=== PATIENT | female | born 2000 | race American Indian/Alaskan Native ===

== ENCOUNTER 2020-07-20 15:24 | Emergency (ER) | payer SELFPAY ==
[2020-07-20] MEDS ORDERED: ZIPRASIDONE MESYLATE 20 MG VIAL IM ONE (16:28)
[2020-07-20] MEDS ORDERED: ALUM-MAG HYDROXIDE-SIMETHICONE 200-200-20MG/5ML ORAL LIQD 30 ML PO PRN (16:28)
[2020-07-20] MEDS ORDERED: ACETAMINOPHEN 325 MG TAB PO PRN (16:28)
[2020-07-20] MEDS ORDERED: MAGNESIUM HYDROXIDE (MOM) ORAL LIQD UDC PO PRN (16:28)
[2020-07-20] MEDS ORDERED: ZIPRASIDONE MESYLATE 20 MG VIAL IM PRN (16:30)
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
[2020-07-20 17:13] LABS: Basophils % (Auto) 0.6 % (0.0-1.8); Eosinophils # (Auto) 0.1 K/mm3 (0.0-0.4); Hematocrit 35.5 % (30.3-42.9); Hemoglobin 11.7 gm/dl (10.1-14.3); Lymphocytes # (Auto) 2.9 K/mm3 (1.2-5.4); Lymphocytes % (Auto) 51.4 % (13.4-35.0); Mean Corpuscular HGB Conc 33 % (30-34); Mean Corpuscular Volume 85 fl (79-97); Monocytes # (Auto) 0.4 K/mm3 (0.0-0.8); Monocytes % (Auto) 6.6 % (0.0-7.3); Platelet Count 243 K/mm3 (140-440); Red Blood Count 4.17 M/mm3 (3.65-5.03); Red Cell Distribution Width 15.3 % (13.2-15.2)
[2020-07-20 17:26] LABS: Alanine Aminotransferase 14 units/L (7-56); Blood Urea Nitrogen 16 mg/dL (7-17); Calcium 8.9 mg/dL (8.4-10.2); Hemolysis Index 1
[2020-07-20 17:27] LABS: BUN/Creatinine Ratio 32
[2020-07-20 18:54] LABS: Bilirubin,Urine NEG (Negative); Blood,Urine NEG (Negative); Color,Urine Yellow (Yellow); Mucus,Urine FEW /HPF; Protein,Urine <15 mg/dL mg/dL (Negative); Urobilinogen,Urine < 2.0 mg/dL (<2.0); WBC,Urine < 1.0 /HPF (0.0-6.0)
[2020-07-20 19:02] LABS: Amphetamine Screen,Urine Negative; Benzodiazepines Screen,Urine Negative; Cannabinoid Screen,Urine Negative; Cocaine Screen,Urine Negative; Methadone Screen,Urine Negative; Opiate Screen,Urine Negative
[2020-07-20 19:03] LABS: RBC,Urine < 1.0 /HPF (0.0-6.0)
[2020-07-20] MEDS ORDERED: WATER FOR INJ Sterile (PF) 10 ML ONE (23:26)
[2020-07-21] MEDS ORDERED: ZIPRASIDONE MESYLATE 20 MG VIAL IM ONE (00:47)
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
[2020-07-21] MEDS: ZIPRASIDONE 20 MG CAP PO SCH ×2 (16:00→23:10)
[2020-07-22 08:19] VITALS: BP 109/72
[2020-07-22] MEDS ORDERED: WATER FOR INJ Sterile (PF) 10 ML ONE (08:46)
== END 2020-07-22 09:07 | disposition other institution (70) ==
LOC: ED 15:24
DX: F23 Brief psychotic disorder (principal); F12.10 Cannabis abuse, uncomplicated; Z79.899 Other long term (current) drug therapy; Z20.822 Contact with and (suspected) exposure to COVID-19
CPT/HCPCS: 36415; 80053; 80307; 81001; 84703; 85025; 96372; 99285; J3486; 80320; G0480

== ENCOUNTER 2020-07-30 14:12 | Emergency (ER) | payer SELFPAY ==
[2020-07-30] MEDS ORDERED: ZIPRASIDONE MESYLATE 20 MG VIAL IM ONE (14:30)
[2020-07-30] MEDS ORDERED: ALUM-MAG HYDROXIDE-SIMETHICONE 200-200-20MG/5ML ORAL LIQD 30 ML PO PRN (14:30)
[2020-07-30] MEDS ORDERED: MAGNESIUM HYDROXIDE (MOM) ORAL LIQD UDC PO PRN (14:30)
[2020-07-30] MEDS ORDERED: ACETAMINOPHEN 325 MG TAB PO PRN (14:30)
--- NOTE | 2020-07-30 15:00 | Emergency Department Report ---
ED Psych HPI - General Chief Complaint: Psych Stated Complaint: MENTAL HEALTH Time Seen by Provider: 07/30/20 14:29 Source: family Mode of arrival: Ambulatory - History of Present Illness Initial Comments: Chief complaint: "She is having a breakdown." HPI: This is a 20-year-old female who was recently diagnosed with bipolar disorder during recent ED encounter who presents with abnormal behavior and delusional thought pattern. She has not been taking her medication. Brother at the bedside provided history. She lives with mother and several siblings. Brother attempts to give her medications. She only takes the medications sporadically. Patient was evaluated here for similar symptoms on July 20. I was the initial provider at that time. Patient was transferred to [facility] for medical stabilization. Brother stated that today family called 911. Patient locked herself in the bathroom. She just watched the water continue to run from a faucet. She told h er family members that someone is "out to kill me" Patient would not cooperate with history taking. She mumbles "I am fine. I am okay." Complaint: altered mental status -: Gradual, days(s) (Several days since discharge from [facility]) Associated Psychiatric Symptoms: depression, delusions History of same: Yes Quality: constant Improves With: none Worsens With: none Context: not taking psychiatric Associated Symptoms: denies other symptoms, headache - Related Data Home Medications Medication Instructions Recorded Confirmed Last Taken Venlafaxine HCl [Effexor Xr] 75 mg PO DAILY 07/20/20 07/20/20 Unknown Allergies Allergy/AdvReac Type Severity Reaction Status Date / Time No Known Allergies Allergy Verified 07/30/20 14:33 ED Review of Systems ROS: Stated complaint: MENTAL HEALTH Other details as noted in HPI Comment: All other systems reviewed and negative Constitutional: denies: fever, malaise Respiratory: denies: cough, shortness of breath Gastrointestinal: denies: abdominal pain, nausea, vomiting Psychiatric: depression, auditory hallucinations, other (Delusional thought) ED Past Medical Hx - Past Medical History Previous Medical History?: Yes Hx Psychiatric Treatment: Yes (Bipolar disorder diagnosed July 2020) - Surgical History Past Surgical History?: Yes Additional Surgical History: Adenoids removed during childhood - Social History Smoking Status: Never Smoker - Medications Home Medications: Home Medications Medication Instructions Recorded Confirmed Last Taken Type Venlafaxine HCl [Effexor Xr] 75 mg PO DAILY 07/20/20 07/20/20 Unknown History ED Physical Exam - General Limitations: No Limitations General appearance: alert, in no apparent distress, other (Patient requires constant redirection in order to follow commands, poor eye contact) - Head Head exam: Present: atraumatic, normocephalic - Eye Eye exam: Present: normal appearance - ENT ENT exam: Present: mucous membranes moist - Neck Neck exam: Present: normal inspection, full ROM - Respiratory Respiratory exam: Present: normal lung sounds bilaterally. Absent: respiratory distress, wheezes, rales, rhonchi - Cardiovascular Cardiovascular Exam: Present: regular rate, normal rhythm, normal heart sounds. Absent: systolic murmur, diastolic murmur, rubs, gallop - GI/Abdominal GI/Abdominal exam: Present: soft, normal bowel sounds. Absent: distended, tenderness, guarding, rebound - Extremities Exam Extremities exam: Present: normal inspection - Neurological Exam Neurological exam: Present: alert, oriented X3 - Psychiatric Psychiatric exam: Present: depressed, flat affect, other (Poor eye contact, poor insight, responding to internal stimuli) - Skin Skin exam: Present: warm, dry, intact, normal color. Absent: rash ED Course Vital Signs 07/30/20 14:57 Temperature 98.2 F Pulse Rate 110 H Respiratory 20 Rate Blood Pressure 143/97 [Right] O2 Sat by Pulse 98 Oximetry - Reevaluation(s) Reevaluation #1: 07/30/20 17:48 I walk with patient and brother from hallway to treatment room. With two nurses, physical security engineer, brother at the bedside, I took history. Reevaluation #2: 07/30/20 17:49 I reassess patient. Patient standing staring at the wall. 07/30/20 17:50 ED Medical Decision Making - Lab Data Result diagrams: 07/30/20 14:45 07/30/20 14:45 - Medical Decision Making Acute psychosis: Patient has delusional thought pattern, paranoia, poor insight, she is currently responding to internal stimuli. She requires constant redirection. She is a high risk for self-harm. ED hold order in place. 1013 form completed. Patient is medically clear for psychiatric care. CBC chemistry serum toxicology screen all within normal limits. Serum test negative. Anticipating transfer to [facility]. Patient received chemical restraint. She required seclusion and locked room. Critical Care Time: Yes Critical care time in (mins) excluding proc time.: 40 Critical care attestation.: If time is entered above; I have spent that time in minutes in the direct care of this critically ill patient, excluding procedure time. 40 minutes of critical care time excluding procedures were used in the care of the patient. I came immediately to the bedside upon patient's arrival. I obtained history from brother at the bedside, I discussed treatment plan with the nursing team members. I reviewed electronic record. I was concerned for escalation behavior. Patient patient attempted to elope during recent ED encounter. Patient required multiple interventions and reassessments. ED Disposition Clinical Impression: Acute psychosis, Bipolar disorder Disposition: DC/TX-65 PSY HOSP/PSY UNIT Is pt being admited?: No Does the pt Need Aspirin: No Condition: Fair
[2020-07-30 15:55] LABS: Basophils % (Auto) 0.3 % (0.0-1.8); Eosinophils # (Auto) 0.1 K/mm3 (0.0-0.4); Eosinophils % (Auto) 0.7 % (0.0-4.3); Hematocrit 34.8 % (30.3-42.9); Hemoglobin 11.5 gm/dl (10.1-14.3); Lymphocytes # (Auto) 1.6 K/mm3 (1.2-5.4); Lymphocytes % (Auto) 21.2 % (13.4-35.0); Mean Corpuscular HGB Conc 33 % (30-34); Mean Corpuscular Volume 85 fl (79-97); Monocytes # (Auto) 0.7 K/mm3 (0.0-0.8); Monocytes % (Auto) 8.9 % (0.0-7.3); Platelet Count 247 K/mm3 (140-440); Red Blood Count 4.08 M/mm3 (3.65-5.03); Red Cell Distribution Width 15.1 % (13.2-15.2)
[2020-07-30 15:57] LABS: Blood Urea Nitrogen 8 mg/dL (7-17); Hemolysis Index 29
[2020-07-30 16:25] LABS: BUN/Creatinine Ratio 11
[2020-07-31] MEDS ORDERED: ZIPRASIDONE MESYLATE 20 MG VIAL IM ONE (07:09)
--- NOTE | 2020-07-31 10:39 | Emergency Department Report ---
Blank Doc - Documentation Documentation: No new events No new complaints Awaiting placement
--- NOTE | 2020-07-31 11:33 | Consultation ---
History of Present Illness - Reason for Consult Consult date: 07/31/20 Reason for consult: agitation - History of Present Psychiatric Illness Per Nurse Note: HPI: This is a 20-year-old female who was recently diagnosed with bipolar disorder during recent ED encounter who presents with abnormal behavior and delusional thought pattern. She has not been taking her medication. Brother at the bedside provided history. She lives with mother and several siblings. Brother attempts to give her medications. She only takes the medications sporadically. Patient was evaluated here for similar symptoms on July 20. I was the initial provider at that time. Patient was transferred to [facility] for medical stabilization. Brother stated that today family called 911. Patient locked herself in the bathroom. She just watched the water continue to run from a faucet. She told her family members that someone is "out to kill me" I attempted to assess this patient today. She is difficulty to arouse. The nurse says the patient was given geodon because she could not get her to keep her clothes on. The patient did arouse. She raised up and stared and me and went back out. PAST PSYCHIATRIC HISTORY: Unable to obtain PAST MEDICAL HISTORY: None reported Family Psychiatric History: None reported or documented SOCIAL HISTORY Unable to obtain REVIEW OF SYSTEMS Unable to obtain MENTAL STATUS EXAMINATION Unable to assess Assessment and Plan (1) Bipolar Disorder Current Visit: Yes Status: Acute Treatment Plan 1013 Restart home meds Sitter: defer to primary Medical: per primary Disposition: Recommend acute psychiatric inpatient treatment Will follow. Thank you for this consult. Case staffed with Dr. Gordon. Medications and Allergies Allergies Allergy/AdvReac Type Severity Reaction Status Date / Time No Known Allergies Allergy Verified 07/30/20 14:33 Home Medications Medication Instructions Recorded Confirmed Last Taken Type Venlafaxine HCl [Effexor Xr] 75 mg PO DAILY 07/20/20 07/30/20 1 Day Ago History ~07/29/20 Paliperidone [Invega] 6 mg PO QHS 07/30/20 07/30/20 1 Day Ago History ~07/29/20 traZODone [Desyrel] 50 mg PO QHS 07/30/20 07/30/20 1 Day Ago History ~07/29/20 Active Meds: Active Medications Acetaminophen (Acetaminophen 325 Mg Tab) 650 mg PO Q4HR PRN PRN Reason: Pain MILD(1-3)/Fever >100.5/HAMMOND Al Hydrox/Mg Hydrox/Simethicone (Alum-Mag Hydroxide-Simethicone [id number]/5ml Oral Liqd 30 Ml) 30 ml PO Q4HR PRN PRN Reason: Indigestion Magnesium Hydroxide (Magnesium Hydroxide (Mom) Oral Liqd Udc) 30 ml PO Q12HR PRN PRN Reason: Constipation Mental Status Exam - Vital signs Last Vital Signs Temp 97.8 F 07/31/20 08:15 Pulse 84 07/31/20 08:15 Resp 18 07/31/20 08:15 BP 130/94 07/31/20 08:15 Pulse Ox 100 07/31/20 08:15 Results Result Diagrams: 07/30/20 14:45 07/30/20 14:45 Abnormal lab results 07/30/20 07/30/20 07/30/20 Range/Units 14:45 14:45 14:45 Tucker % (Auto) 8.9 H (0.0-7.3) % Sodium 133 L (137-145) mmol/L Glucose 111 H (65-100) mg/dL Salicylates < 0.3 L (2.8-20.0) mg/dL Acetaminophen (10.0-30.0) ug/mL 07/30/20 Range/Units 14:45 Tucker % (Auto) (0.0-7.3) % Sodium (137-145) mmol/L Glucose (65-100) mg/dL Salicylates (2.8-20.0) mg/dL Acetaminophen 5.0 L (10.0-30.0) ug/mL All other labs normal.
[2020-07-31] MEDS ORDERED: PALIPERIDONE 6 MG PO SCH (22:00)
[2020-07-31] MEDS: traZODone 50 MG TAB PO SCH (23:16)
[2020-07-31] MEDS: PALIPERIDONE ER 3 MG TAB PO SCH (23:17)
--- NOTE | 2020-08-01 10:31 | Progress Note ---
Subjective - Reason for Consult Consult date: 08/01/20 Reason for consult: psychosis - Chief Complaint Chief complaint: Per Nursing staff: The patient has been taking her clothes off and won't keep them on. Also says the patient is aggressive, and will fight. The patient was seen today. She is standing at the door looking out of the window. She is naked and just staring at me. I did not open the door, because the sitter states if she comes out she will fight. MENTAL STATUS EXAMINATION Unable to assess Assessment and Plan (1) Bipolar Disorder Current Visit: Yes Status: Acute Treatment Plan 1013 Start Geodon 20mg IM q6h prn agitatione Sitter: defer to primary Medical: per primary Disposition: Recommend acute psychiatric inpatient treatment Will follow. Thank you for this consult. Case staffed with Dr. Gordon. Mental Status Exam - Vital signs Last Vital Signs Temp 98.3 F 07/31/20 20:30 Pulse 114 H 07/31/20 20:30 Resp 22 07/31/20 21:28 BP 162/92 07/31/20 20:30 Pulse Ox 97 07/31/20 21:28
--- NOTE | 2020-08-01 11:27 | Event Note ---
Date: 08/01/20 S- "I'm ok. I want blue clothes." O- vital signs stable; pt standing in room in the nude with scrubs in the corner; she is cooperative, not aggressive or violent A- COVID-19, Bipolar Disorder P- continue 1013; awaiting placement for inpatient psychiatric treatment
[2020-08-01] MEDS: VENLAFAXINE XR 75 MG CAP PO SCH (13:49)
[2020-08-01] MEDS ORDERED: WATER FOR INJ Sterile (PF) 10 ML ONE (21:32)
[2020-08-01] MEDS: traZODone 50 MG TAB PO SCH (21:39)
[2020-08-01] MEDS: PALIPERIDONE ER 3 MG TAB PO SCH (21:39)
[2020-08-01] MEDS: ZIPRASIDONE MESYLATE 20 MG VIAL IM PRN (21:48)
--- NOTE | 2020-08-01 21:54 | Event Note ---
Date: 08/01/20 The patient was evaluated in the emergency department for symptoms described in the history of present illness. He/she was evaluated in the context of the global COVID-19 pandemic, which necessitated consideration that the patient might be at risk for infection with the virus that causes COVID-19. Institutional protocols and algorithms that pertain to the evaluation of patients at risk for COVID-19 are in a state of rapid change based on information released by regulatory bodies including the CDC and federal and state organizations. These policies and algorithms were followed during the patient's care in the emergency department. Please note that these policies, procedures and recommendations changed on a rapid basis. [id number] evaluation performed. Patient running around naked. She has occasionally depressed by nursing staff. She is not violent, but she is demonstrating disregard for her safety, would not put on her clothes. She did not respond to verbal de-escalation techniques or show of force. She was medicated with Geodon, and placed in room 13. Upon my evaluation, the patient is awake, breathing spontaneously, moving 4 extremities, eating food, unclothed, and naked, and does not appear to be in any acute distress. Seclusion orders initiated.
--- NOTE | 2020-08-02 09:39 | Progress Note ---
Subjective - Reason for Consult Consult date: 08/02/20 Reason for consult: psychosis - Chief Complaint Chief complaint: Per Nursing staff: The patient has been taking her clothes off and won't keep them on.The patient is covered in feces The patient was seen today. She is standing at the door looking out of the window. She is naked and just staring at me. She has milk all over her face and head. There is feces on the floor and on her. She says the voices told me to do it. She continues to just start at me and would not answer any more questions. MENTAL STATUS EXAMINATION Unable to assess Assessment and Plan (1) Bipolar Disorder Current Visit: Yes Status: Acute Treatment Plan 1013 Invega Sustenn 234mg ordered, will wean down po Invega once given. Sitter: defer to primary Medical: per primary Disposition: Recommend acute psychiatric inpatient treatment Will follow. Thank you for this consult. Case staffed with Dr. Gordon. Mental Status Exam - Vital signs Last Vital Signs Temp 97.7 F 08/02/20 05:39 Pulse 158 H 08/02/20 05:39 Resp 18 08/02/20 05:39 BP 133/90 08/02/20 05:39 Pulse Ox 99 08/02/20 05:39
[2020-08-02] MEDS ORDERED: PALIPERIDONE PALMITATE 234 MG/1.5 ML SYRINGE IM ONE (11:00)
[2020-08-02] MEDS: ZIPRASIDONE MESYLATE 20 MG VIAL IM PRN ×2 (12:08→19:35)
[2020-08-02] MEDS: VENLAFAXINE XR 75 MG CAP PO SCH (12:08)
--- NOTE | 2020-08-02 12:24 | Event Note ---
Date: 08/02/20 S- Per RN, patient is refusing to have vital signs taken, she is refusing to take medications. Patient defecated in room and smeared it on the floor. Patient standing in front of the door with one hand raised and the other hand over her heart. Ariela- Albaro Cunha called by charge nurse. Patient was initially resistant, but then allowed RN to administer Invega injection. Vital signs were taken at that time. Rate in the 120s, however this is likely due to the escalated nature of situation in which her vital signs were taken. Remainder of vitals are normal. Will recheck vitals when patient is more calm. A- COVID-19, Bipolar Disorder P- continue 1013; awaiting placement for inpatient psychiatric treatment
[2020-08-02] MEDS ORDERED: WATER FOR INJ Sterile (PF) 10 ML ONE (19:26)
[2020-08-02] MEDS: traZODone 50 MG TAB PO SCH (22:00)
[2020-08-02] MEDS: PALIPERIDONE ER 3 MG TAB PO SCH (22:00)
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
[2020-08-02 23:51] LABS: Bilirubin,Urine NEG (Negative); Blood,Urine MOD (Negative); Color,Urine Amber (Yellow); Mucus,Urine 3+ /HPF
[2020-08-03 00:23] LABS: Amphetamine Screen,Urine PRESUMPTIVE NEGATIVE; Benzodiazepines Screen,Urine PRESUMPTIVE NEGATIVE; Cannabinoid Screen,Urine PRESUMPTIVE NEGATIVE; Cocaine Screen,Urine PRESUMPTIVE NEGATIVE; Methadone Screen,Urine PRESUMPTIVE NEGATIVE; Opiate Screen,Urine PRESUMPTIVE NEGATIVE
[2020-08-03] MEDS: ZIPRASIDONE MESYLATE 20 MG VIAL IM PRN (01:37)
--- NOTE | 2020-08-03 10:35 | Progress Note ---
Subjective - Reason for Consult Consult date: 08/03/20 Reason for consult: psychosis - Chief Complaint Chief complaint: Per Nursing staff: States the patient is doing much better today The patient was seen today. She was given Invega Sustenna yesterday and is much better today. She is a/o x 3. She denies SI/HI. She says "I'm starting to feel better." Her thought process is still a little disorganized. The patient initially expresses hallucinations, but then states "I hear your voice in my mind." She points to her head. MENTAL STATUS EXAMINATION Unable to assess Assessment and Plan (1) Bipolar Disorder Current Visit: Yes Status: Acute Treatment Plan 1013 Invega Sustenn 234mg given yesterday Decreased Invega po 3mg po daily Sitter: defer to primary Medical: per primary Disposition: Recommend acute psychiatric inpatient treatment Will follow. Thank you for this consult. Case staffed with Dr. Gordon. Mental Status Exam - Vital signs Last Vital Signs Temp 98.0 F 08/03/20 08:15 Pulse 89 08/03/20 08:15 Resp 18 08/03/20 08:15 BP 115/81 08/03/20 08:15 Pulse Ox 98 08/03/20 08:15
[2020-08-03] MEDS: VENLAFAXINE XR 75 MG CAP PO SCH (11:00)
[2020-08-03] MEDS: PALIPERIDONE ER 3 MG TAB PO SCH (12:06)
--- NOTE | 2020-08-03 12:54 | Event Note ---
Date: 08/03/20 S- Behavior is much better today since patient received her Invega shot on yesterday. Patient states "I am feeling better." O- Vital signs stable. Patient is cooperative, follows directions. Patient showered. Used bathroom and gave a urine sample. A- COVID-19, Bipolar Disorder P- continue 1013; awaiting placement for inpatient psychiatric treatment. Apparently there was some concern that patient had urinary incontinence. However, patient was not incontinent, she was purposefully urinating and defecating on the floor. This is likely secondary to her psychosis. Now that she is less disorganized, she is able to actually use the bathroom as needed.
[2020-08-03] MEDS: traZODone 50 MG TAB PO SCH (22:19)
[2020-08-04 08:21] VITALS: BP 106/54
[2020-08-04] MEDS: PALIPERIDONE ER 3 MG TAB PO SCH (10:13)
[2020-08-04] MEDS: VENLAFAXINE XR 75 MG CAP PO SCH (10:13)
--- NOTE | 2020-08-04 10:30 | Progress Note ---
Subjective - Reason for Consult Consult date: 08/04/20 Reason for consult: MHE Requesting physician: MEHREEN KAY - Chief Complaint Chief complaint: Psych Progress Patient seen this AM, smiley affect, states she is good today, endorses not hearing voices at the moment, admits to having mental health issues, state she got injection yesterday and does not want it no more. Patient states she used to hear voices but not anymore, says she could hear it if i leave but nothing at the moment. Patient expresses wishes to go home and eat good food and also be with family REVIEW OF SYSTEMS Constitutional: Negative for weight loss ENT: Negative for stridor Respiratory: Negative for cough or hemoptysis All other systems reviewed and are negative MENTAL STATUS EXAMINATION General Appearance and Behavior: Age appropriate, good hygiene, not wearing appropriate clothes, good eye contact, cooperative polite with questioning. Cooperation: Participating/engaged Psychomotor Behavior: Psychomotor normal Mood: Good Affect and affective range: dysthymic Thought Process:Circumstantial, Illogical, Thought Content: Flight of ideas, Illogical, Speech: Normal volume at times Intellectual Functioning: Average Suicidal Ideation: Denies SI Homicidal Ideation: Denies HIl Impulse Control: Impaired Insight and Judgment: Limited insight and judgment Memory: Fair Attention: Divided attention impaired Orientation: Alert, oriented, Diagnoses: Assessment and Plan - Psychiatric problem (1) Bipolar disorder Current Visit: Yes Status: Acute Treatment Plan Patient given IM invega ysday. outpt psych follow up is recomended at this time// MEDICATIONS: Risks, benefits and alternatives of medications discussed with the patient, questions answered and consent obtained from patient. PSYCHOTHERAPY: Supportive psychotherapy provided MEDICAL: Per primary team DELIRIUM PRECAUTIONS: Please re-orient patient frequently, keep lights on during the day, and minimize benzodiazepines and opiates as these medications could worsen patient's confusion. FIELD TEST ENGINEER: DISPOSITION: Do not Recommend acute inpatient psychiatric hospitalization at this time. Case discussed with Dr. Gordon who agrees with current disposition LEGAL STATUS: 1013 rescinded FOLLOW-UP: Will sign off Thank you for the consult. Please contact with any questions and/or concerns. Mental Status Exam - Vital signs Last Vital Signs Temp 97.9 F 08/04/20 08:20 Pulse 82 08/04/20 08:20 Resp 16 08/04/20 08:20 BP 106/54 08/04/20 08:20 Pulse Ox 100 04/30/21 08:20
--- NOTE | 2020-08-04 10:34 | Event Note ---
Date: 08/04/20 S-patient smiling, walking in room in no acute distress. When asked how she is feeling the patient replies "I am good." No events reported overnight O- vital signs stable, GCS 15 A- COVID-19, Bipolar Disorder P- continue 1013; awaiting placement for inpatient psychiatric treatment.
== END 2020-08-04 14:30 ==
LOC: EEVIPCON 14:12 → ED 14:12
DX: F23 Brief psychotic disorder (principal); F31.9 Bipolar disorder, unspecified; Z79.899 Other long term (current) drug therapy; Z20.822 Contact with and (suspected) exposure to COVID-19
CPT/HCPCS: 36415; 70450; 80048; 80307; 81001; 84703; 85025; 87086; 96372; 99284; J2426; J3486; U0003; 80320; G0480; J3246